=== PATIENT | female | born 2005 | race Caucasian/White ===

== ENCOUNTER 2024-05-13 03:52 | Emergency (ER) | payer SELFPAY ==
[2024-05-13] MEDS ORDERED: Famotidine 20 MG TAB ONE (04:32)
[2024-05-13] MEDS ORDERED: diphenhydrAMINE 25 MG CAP ONE (04:32)
[2024-05-13] MEDS ORDERED: predniSONE 20 MG TAB ONE (04:32)
== END 2024-05-13 05:39 | disposition home or self-care (01) ==
LOC: CSHERS 03:52
DX: L50.0 Allergic urticaria (principal); R22.0 Localized swelling, mass and lump, head
CPT/HCPCS: 99283; J7512